=== PATIENT | male | born 1980 | race Caucasian/White ===

== ENCOUNTER 2020-10-14 20:39 | Emergency (ER) | payer SELFPAY ==
[2020-10-14] VITALS (8 sets, daily range): BP systolic 119–167; BP diastolic 76–117; PULSE 104–132; RESP 14–26; TEMP 36.6; O2SAT 92–98; BMI 59.3
--- NOTE | 2020-10-14 20:53 | W.ED.SOB ---
HPI - SOB/Dyspnea General: Chief Complaint: Shortness of Breath/Dyspnea Stated Complaint: RESP DISTRESS Time Seen by Provider: 10/14/20 20:43 History of Present Illness: MD elicited complaint: shortness of breath Pertinent past history: other Onset (ago): hour(s) Timing: constant Severity: moderate Exacerbating factors: lying flat and exertion Relieving factors: oxygen Known history of: other Associated symptoms: Deny chest congestion, chest pain, cough, diaphoresis, dizziness, fever(s), nausea, rash or vomiting Treatment prior to arrival: oxygen Review of Systems Const: Denies: fever(s) or diaphoresis Eyes: Denies: change in vision or blurry vision ENMT: Denies: odynophagia, dental pain or sinus pain Card: Denies: chest pain Resp: Denies: chest congestion GI: Denies: nausea or vomiting : Denies: difficulty urinating or hematuria Musc: Denies: neck pain, joint redness or joint warmth Skin/Breast: Denies: rash or erythema Neuro: Denies: dizziness Psych: Denies: anxiety Physical Exam Const: GENERAL APPEARANCE: cooperative NUTRITIONAL APPEARANCE: obese morbidly obese ORIENTATION/CONSCIOUSNESS: Yes oriented to person, Yes oriented to place and Yes oriented to time HENMT: COMMON NORMALS: normocephalic, external ears normal and Normal external nose present HEAD & SCALP: normocephalic FACE & SINUS: normal facial exam NOSE: Normal external nose present and No nasal discharge present EXTERNAL EAR: Yes external ears normal Eye: COMMON NORMALS: Equal, round and reactive pupils present, EOMs intact bilaterally and conjunctivae normal EYELID: eyelids normal CONJUNCTIVA: Yes conjunctivae normal PUPIL: Yes Equal, round and reactive pupils present Neck/C-Spine: GENERAL: No tracheal deviation Chest: COMMONS NORMALS: normal inspection of the chest CHEST: No tenderness Resp: COMMON NORMALS: clear to auscultation bilaterally EFFORT & INSPECTION: Yes tachypneic, No respiratory distress, No retractions, No uses accessory muscles and No tracheal deviation AUSCULTATION: clear to auscultation bilaterally, no rhonchi, no wheezes and lung sounds not diminished Cardio: COMMON NORMALS: regular rhythm RATE: tachycardic RHYTHM: regular rhythm HEART SOUNDS: no murmurs PERIPHERAL PULSES: radial pulses present GI: INSPECTION: No abdominal distension AUSCULTATION: No Hyperactive bowel sounds present and No Hypoactive bowel sounds present PALPATION: No Guarding due to palpation present (GI) and No Rigid due to palpation PERCUSSION: no dullness to percussion and no tympanic to percussion Neuro: SENSORIUM/ORIENTATION: Yes oriented to person, Yes oriented to place and Yes oriented to time Psych: COMMON NORMALS: mental status grossly normal Skin: NARRATIVE SKIN EXAM: Bilateral stasis dermatitis, with chronic ulceration on the left leg. Course Consultations: Consultation #1: Larry Chapa Time: 00:05 Vital Signs: Vital signs: Vital Signs Temperature 97.9 F 10/14/20 20:47 Pulse Rate 132 H 10/14/20 23:30 Respiratory Rate 24 H 10/14/20 23:30 Blood Pressure 167/98 10/14/20 23:30 Pulse Oximetry 92 10/14/20 23:30 MDM - SOB/Dyspnea MDM Narrative: Medical decision making narrative: 39-year-old male with morbid obesity, not on oxygen at home. He presents with hypoxic respiratory failure requiring 4 L of oxygen currently. His PO2 is 66 on that setting. His sats have been 92% or so. He is mildly tachycardic in the 110s. His chest x-ray shows pulmonary vascular congestion without effusion. His BNP is elevated, his D-dimer is significantly elevated at 13,000. His white blood cell count is 12.9. No real left shift. He is refusing a Covid swab at this point. The concern is obviously for pulmonary embolus versus COVID-[address] scanner will not lift this gentleman, to scan him. He is anticoagulated with heparin, and will be transferred to [facility] as they are willing to accept. He is stable at this point for transfer. Lab Data: Labs: Lab Results 10/14/20 10/14/20 10/14/20 Range/Units 21:49 21:55 21:55 WBC 12.9 H (4.0-10.0) 10^3/ uL RBC 5.03 (4.1-5.3) 10^6/u L Hgb 12.7 (11.7-16.6) g/dL Hct 41.5 L (42.0-52.0) % MCV 82.5 (80-94) fL MCH 25.2 L (28.0-34.0) pg MCHC 30.6 (30.0-36.0) g/dL RDW 15.2 H (12.1-15.1) % Plt Count 175 (130-400) 10^3/c mm MPV 10.7 H (7.4-10.4) fL Neut % (Auto) 79.1 % Lymph % (Auto) 11.0 % [place] % (Auto) 8.4 % Eos % (Auto) 0.4 % Baso % (Auto) 0.6 % Neut # (Auto) 10.17 H (1.8-7.7) 10^3/u L Lymph # (Auto) 1.4 (0.8-4.8) 10^3/u L [place] # (Auto) 1.1 H (0.2-0.9) 10^3/u L Eos # (Auto) 0.1 (0.0-0.8) 10^3/u L Baso # (Auto) 0.1 (0.0-0.1) 10^3/u L Nucleated RBC % (a uto) 0 % Nucleated RBCs # 0.0 /100WBC D-Dimer (0-0.59) ug/mIFE U Specimen Type Arterial Sample Site Radial, right ABG pH 7.40 (7.35-7.45) ABG pCO2 43.8 (35-45) mmHg ABG pO2 66.1 L (80.0-100.0) mmH g ABG HCO3 27.2 H (22-26) mmol/L ABG Base Excess 2.0 (-2.0-2.0) mmol/ L Bridger Test Pos Hematocrit 40.6 L (42-52) % Hgb O2 Saturation 91.4 L (95-100) % Carboxyhemoglobin 0.8 (0.4-20.1) %THgb Methemoglobin 0.8 (0.4-1.5) % Total Hemoglobin 13.2 L (14-18) g/dL O2 Delivery Device Nc O2 Liters/Min 4.0 % Tool Room Supervisor ID [id number] Sodium 137 (136-145) mmol/L Potassium 4.5 (3.5-5.1) mmol/L Chloride 99 (98-107) mmol/L Carbon Dioxide 25 (22-29) mmol/L Anion Gap 17.5 (5-19) BUN 14 (6-20) mg/dL Creatinine 0.9 (0.7-1.2) mg/dL GFR Calculation 93.9 (90-130) mL/min Glucose 143 H (65-115) mg/dL Calculated Osmolal ity 287 (285-295) mOsm/k g Lactic Acid (0.5-2.2) mmol/L Calcium 9.1 (8.5-10.5) mg/dL Total Bilirubin 0.4 (0.15-1.2) mg/dL AST 22 (0-40) U/L ALT 18 (0-41) U/L Alkaline Phosphata se 82 (40-130) IU/L NT-Pro-B Natriuret Pep 1613 H (0-125) pg/mL Total Protein 8.5 (6.6-8.7) g/dL Albumin 3.5 (3.5-5.2) g/dL Globulin 5.0 H (1.3-4.6) g/dL 10/14/20 10/14/20 Range/Units 21:55 21:55 WBC (4.0-10.0) 10^3/ uL RBC (4.1-5.3) 10^6/u L Hgb (11.7-16.6) g/dL Hct (42.0-52.0) % MCV (80-94) fL MCH (28.0-34.0) pg MCHC (30.0-36.0) g/dL RDW (12.1-15.1) % Plt Count (130-400) 10^3/c mm MPV (7.4-10.4) fL Neut % (Auto) % Lymph % (Auto) % [place] % (Auto) % Eos % (Auto) % Baso % (Auto) % Neut # (Auto) (1.8-7.7) 10^3/u L Lymph # (Auto) (0.8-4.8) 10^3/u L [place] # (Auto) (0.2-0.9) 10^3/u L Eos # (Auto) (0.0-0.8) 10^3/u L Baso # (Auto) (0.0-0.1) 10^3/u L Nucleated RBC % (a uto) % Nucleated RBCs # /100WBC D-Dimer 13.22 H (0-0.59) ug/mIFE U Specimen Type Sample Site ABG pH (7.35-7.45) ABG pCO2 (35-45) mmHg ABG pO2 (80.0-100.0) mmH g ABG HCO3 (22-26) mmol/L ABG Base Excess (-2.0-2.0) mmol/ L Bridger Test Hematocrit (42-52) % Hgb O2 Saturation (95-100) % Carboxyhemoglobin (0.4-20.1) %THgb Methemoglobin (0.4-1.5) % Total Hemoglobin (14-18) g/dL O2 Delivery Device O2 Liters/Min % Tool Room Supervisor ID Sodium (136-145) mmol/L Potassium (3.5-5.1) mmol/L Chloride (98-107) mmol/L Carbon Dioxide (22-29) mmol/L Anion Gap (5-19) BUN (6-20) mg/dL Creatinine (0.7-1.2) mg/dL GFR Calculation (90-130) mL/min Glucose (65-115) mg/dL Calculated Osmolal ity (285-295) mOsm/k g Lactic Acid 2.2 (0.5-2.2) mmol/L Calcium (8.5-10.5) mg/dL Total Bilirubin (0.15-1.2) mg/dL AST (0-40) U/L ALT (0-41) U/L Alkaline Phosphata se (40-130) IU/L NT-Pro-B Natriuret Pep (0-125) pg/mL Total Protein (6.6-8.7) g/dL Albumin (3.5-5.2) g/dL Globulin (1.3-4.6) g/dL Discharge Plan Discharge Patient Disposition: Xfer Other Clinical Impression: Respiratory failure with hypoxia Qualifiers: Chronicity: acute Qualified Code(s): J96.01 - Acute respiratory failure with hypoxia Condition: Stable Coding Level of Care Code ED Flat Locker for [facility] Fwd Exam Comprehensive
--- NOTE | 2020-10-14 21:14 | XRR_ITS ---
PROCEDURE INFORMATION: Exam: XR Chest, 1 View Exam date and time: 10/14/2020 9:18 PM Age: 39 years old Clinical indication: Shortness of breath; Additional info: SOB TECHNIQUE: Imaging protocol: XR of the chest Views: 1 view. COMPARISON: CR Chest 2 views* [id number] 03/04/2016 2:26 PM FINDINGS: Lungs: Fullness in the pulmonary vasculature suggesting volume overload in the lungs. Pleural spaces: No pleural effusion. No pneumothorax. Heart/Mediastinum: Stable moderate enlargement of the cardiac silhouette. Mediastinal contours are unremarkable. Bones/joints: Unremarkable for age. XR/XR chest 1V portable [id number] IMPRESSION: 1. Fullness in the pulmonary vasculature suggesting volume overload in the lungs. 2. Stable moderate enlargement of the cardiac silhouette.
--- NOTE | 2020-10-14 21:14 | ECG_ITS ---
[facility] Test Date: 2020-10-14 Pat Name: Juanjose Roland Department: Room: Gender: Male Sales Product Specialist: : [id number] Requested By: Cortez Lamas Order Number: [id number] Rojelio MD: Mariel Parkinson M.D. Measurements Intervals [place] Rate: 107 P: 34 RI: 152 QRS: 39 QRSD: 116 T: 3 QT: 343 QTc: 459 Interpretive Statements SINUS TACHYCARDIA POSSIBLE LEFT ATRIAL ENLARGEMENT [-0.1mV P WAVE IN V1/V2] No previous ECG available for comparison Electronically Signed On 10-14-2020 22:13:36 PRINTING TABLE HAND by Mariel Parkinson M.D. [id number]
[2020-10-14 21:58] LABS: ABG PCO2 43.8 mmHg (35-45); Arterial Blood Gas Hematocrit 40.6 % (42-52); Blood Gas Allen Test Pos; Blood Gas Sample Site Radial, right; Blood Gas Sample Type Arterial; Carboxyhemoglobin 0.8 %THgb (0.4-20.1); HCO3 ABG 27.2 mmol/L (22-26); HGB O2 Sat 91.4 % (95-100); Methemoglobin 0.8 % (0.4-1.5); Oxygen Device NC; PO2 ABG 66.1 mmHg (80.0-100.0); Total Hemoglobin 13.2 g/dL (14-18)
[2020-10-14 22:04] LABS: Basophils # 0.1 10^3/uL (0.0-0.1); Basophils % 0.6 %; Eosinophils # 0.1 10^3/uL (0.0-0.8); Eosinophils % 0.4 %; Hematocrit 41.5 % (42.0-52.0); Hemoglobin 12.7 g/dL (11.7-16.6); Lymphocytes # 1.4 10^3/uL (0.8-4.8); Mean Corpuscular HGB Conc 30.6 g/dL (30.0-36.0); Mean Corpuscular Hemoglobin 25.2 pg (28.0-34.0); Mean Corpuscular Volume 82.5 fL (80-94); Mean Platelet Volume 10.7 fL (7.4-10.4); Monocytes # 1.1 10^3/uL (0.2-0.9); Monocytes % 8.4 %; Neutrophils # 10.17 10^3/uL (1.8-7.7); Neutrophils % 79.1 %; Nucleated Red Blood Cells % 0 %; Platelet Count 175 10^3/cmm (130-400); Red Blood Count 5.03 10^6/uL (4.1-5.3); Red Cell Distribution Width 15.2 % (12.1-15.1); White Blood Count 12.9 10^3/uL (4.0-10.0)
[2020-10-14 22:19] LABS: Lactic Sepsis W/Reflex 2.2 mmol/L (0.5-2.2)
[2020-10-14 22:30] LABS: Alanine Aminotransferase 18 U/L (0-41); Albumin Level 3.5 g/dL (3.5-5.2); Alkaline Phosphatase 82 IU/L (40-130); Anion Gap 17.5 (5-19); Aspartate Amino Transferase 22 U/L (0-40); Blood Urea Nitrogen 14 mg/dL (6-20); Calcium 9.1 mg/dL (8.5-10.5); Carbon Dioxide 25 mmol/L (22-29); Chloride 99 mmol/L (98-107); Glomerular Filtration Rate 93.9 mL/min (90-130); Glucose 143 mg/dL (65-115); NT Pro B Type Natriuretic Pept 1613 pg/mL (0-125); Osmolality Calculated 287 mOsm/kg (285-295); Potassium 4.5 mmol/L (3.5-5.1); Sodium 137 mmol/L (136-145); Total Bilirubin 0.4 mg/dL (0.15-1.2); Total Protein 8.5 g/dL (6.6-8.7)
[2020-10-14 23:12] LABS: D Dimer 13.22 ug/mIFEU (0-0.59)
[2020-10-14 23:49] LABS: Reflex Lactate Order REFLEX LACTIC ORDERD
[2020-10-15] VITALS (7 sets, daily range): BP systolic 129–173; BP diastolic 75–110; PULSE 102–110; RESP 20–28; O2SAT 92–95
[2020-10-15 00:18] LABS: Troponin T (5th) Once 91 ng/L (0-15)
[2020-10-15] MEDS: FUROsemide 10 mg/mL SDV 4mL 40 MG IVP (00:35)
[2020-10-15] MEDS: oxyCODONE-APAP 5-325 mg Tablet 2 TAB PO (00:35)
[2020-10-15] MEDS: heparin drip 25,000 UNIT/500 ML PREMIX 20 UNIT IV (00:36)
--- NOTE | 2020-10-15 00:46 | PC.NURSE ---
Attempt to call report to [facility] at this time. Nurse not available and will call back
== END 2020-10-15 02:49 | disposition other institution (70) ==
PROVIDERS: Emergency Provider Emergency Medicine
DX: J96.01 Acute respiratory failure with hypoxia (principal)
CPT/HCPCS: 12345; 36600; 71045; 80053; 82805; 83605; 83880; 84484; 85025; 85378; 93005; 96365; 96366; 96375; 99284; 99285; J1644; J1940